=== PATIENT | male | born 2000 | race Caucasian/White ===

== ENCOUNTER 2022-03-10 04:50 | Emergency (ER) | payer OTHER ==
[2022-03-10] MEDS ORDERED: Ketorolac 30 MG/ML SDV IM ONE (05:24)
== END 2022-03-10 05:53 | disposition home or self-care (01) ==
LOC: MW.ED 04:50
DX: L03.113 Cellulitis of right upper limb (principal)
CPT/HCPCS: 96372; 99282; J1885

== ENCOUNTER 2023-10-01 19:43 | Emergency (ER) | payer OTHER | END 2023-10-01 20:18 | disposition left against medical advice (07) | LOC: MW.ED 19:43 | DX: Z53.21 Procedure and treatment not carried out due to patient leaving prior to being seen by health care provider (principal) ==